=== PATIENT | female | born 1990 | race African-American/Black ===

== ENCOUNTER → 2017-07-02 | Outpatient (CLI) | payer SELFPAY ==
[~2017-07-02] MED LIST: NO HOME MEDICATIONS
== END ==
LOC: COL.RAD 06-25 10:30
DX: K59.00 Constipation, unspecified (principal); R10.9 Unspecified abdominal pain

== ENCOUNTER 2018-07-19 13:00 | Outpatient (RCR) | payer BC ==
[2018-07-12 15:38] VITALS: BP 106/57; PULSE 68
[2018-07-12 16:08] VITALS: BP 101/79; PULSE 65
[2018-07-14 13:09] VITALS: BP 127/65; PULSE 86; TEMP 97.3
[2018-07-16 13:34] VITALS: BP 108/64; PULSE 72; TEMP 98.9
[~2018-07-19] VITALS: Ht 167.6 cm; Wt 92.0 kg
[2018-07-19 12:58] VITALS: BP 111/62; PULSE 75; TEMP 98.8
[~2018-07-19 13:00] MED LIST changes: +PROTONIX20 MG PO
== END 2018-07-19 15:03 | disposition home or self-care (01) ==
LOC: EUO 13:00
DX: D50.9 Iron deficiency anemia, unspecified (principal)
CPT/HCPCS: J2916